=== PATIENT | male | born 2000 | race Asian ===

== ENCOUNTER 2024-06-21 06:27 | Outpatient (REF) | payer OTHER, SELFPAY ==
--- NOTE | ~2024-06-21 | US_ITS ---
CLINICAL HISTORY: RT TESTICULAR PAIN US Scrotum with Doppler Comparison: None Findings: Right testicle normal size and echotexture, 4.4 x 2.0 x 3.0 cm. Left testicle normal size and echotexture, 4.3 x 2.0 x 2.6 cm. Normal color flow and arterial/venous spectral tracing of both testicles. Incidental left epididymal head 0.5 x 0.4 x 0.3 cm cyst. No hydroceles or varicoceles. IMPRESSION: No acute findings and no evidence of torsion. This document has been electronically signed by: Anthony Galicia MD on 06/22/2024 08:18:55
--- NOTE | ~2024-06-21 | US_ITS ---
CLINICAL HISTORY: RT PERIUMBILCAL PAIN, R O HERNIA US abdomen limited Comparison: None Findings: Scanning was performed of the periumbilical abdominal wall. There are no hernias, focal abdominal wall defect, or cystic or solid masses. IMPRESSION: Unremarkable limited abdominal ultrasound. This document has been electronically signed by: Anthony Galicia MD on 06/22/2024 08:15:26
== END 2024-06-21 06:28 | disposition home or self-care (01) ==
LOC: HO.UMASIMG 06:27
PROVIDERS: Visit Provider Internal Medicine
DX: N50.811 Right testicular pain (principal); R10.9 Unspecified abdominal pain
CPT/HCPCS: 76705; 76870

== ENCOUNTER → 2024-06-21 08:24 | Outpatient (BNV) | payer OTHER, SELFPAY | PROVIDERS: Visit Provider Specialist | DX: N50.811 Right testicular pain (principal); N50.3 Cyst of epididymis; R10.33 Periumbilical pain | CPT/HCPCS: 76705; 76870; 93976 ==